=== PATIENT | female | born 1980 ===

== ENCOUNTER 2024-01-01 12:10 | Outpatient (AMB) | payer BC, SELFPAY ==
--- NOTE | 2024-01-01 12:11 | MHC.OFFWIV ---
Intake Vital Signs 01/01/24 12:14 Height 5 ft 4.5 in Weight 120 lb BMI 20.3 BP 110/76 Blood Pressure Location Lt brachial Position Sitting Pulse 78 Pulse Source Pulse Oximeter Temp 98.2 F Temp Source Oral Pulse Oximetry (%) 98 Oxygen Delivery Method Room Air Intake Visit Reasons: Abdominal pain, nausea Intake Note: pt c/o abdominal pain and nausea. Started 4 days ago with burning while urinating Patient Tobacco Use Status: Never used Tobacco Allergies No Known Allergies Allergy (Verified 01/01/24 12:18) Do you need a note to return to daycare/school/sports/work: No HPI HPI Comments History of Present Illness Details Patient is a 43-year-old female complaining of 3 days of burning with urination, increased frequency of urination, lower abdominal pain and some blood in her urine. She denies any fevers or history of kidney stones. She has not taken anything to try to make the pain go away. PFSH Social History Patient Tobacco Use Status: Never used Tobacco Review of Systems Const All systems reviewed & are unremarkable except as noted in HPI and below Physical Exam Vital Signs: Last Vital Signs Temp 98.2 F 01/01/24 12:14 Pulse 78 01/01/24 12:14 BP 110/76 01/01/24 12:14 Pulse Ox 98 01/01/24 12:14 Oxygen Delivery Method Room Air 01/01/24 12:14 BMI result Body Mass Index 20.3 Const General: cooperative, healthy appearing, comfortable, no acute distress and well developed Orientation/consciousness: patient oriented x3 Limitations: no limitations HEENT Head: Yes normal to inspection Eyes General: appearance normal, both eyes and all related structures Neck Neck: Yes normal visual inspection and Yes full ROM Resp Effort & Inspection: normal respiratory effort and able to speak in complete sentences GI Inspection: Yes normal to inspection Palpation (GI): Soft to palpation and Tenderness to palpation present (GI) suprapubicly General: Yes no CVA tenderness Back/Spine/Pelvis Back: no CVA tenderness Skin General skin exam: no rashes or lesions noted Neuro General: patient oriented x3 Extrem General: Yes normal to inspection Results AMB Urinalysis, Automated UA Leukoctes 125 Bri/uL Last Edit by WEN Cerna on 01/01/24 12:34 UA Nitrite Negative Last Edit by WEN Cerna on 01/01/24 12:34 UA Urobilinogen 0.2 mg/dL Last Edit by Michaela Cheema [facility] on 01/01/24 12:34 UA Protein 0 mg/dL Last Edit by Michaela Cheema [facility] on 01/01/24 12:34 UA pH 6.5 Last Edit by Michaela Cheema [facility] on 01/01/24 12:34 UA Blood 200 Jules/uL Last Edit by Michaela Cheema [facility] on 01/01/24 12:34 UA Specific [place] 1.015 Last Edit by Michaela Cheema [facility] on 01/01/24 12:34 UA Ketone Negative Last Edit by Michaela Cheema [facility] on 01/01/24 12:34 UA Bilirubin 0 mg/dL Last Edit by Michaela Cheema [facility] on 01/01/24 12:34 UA Glucose 0 mg/dL Last Edit by Michaela Cheema [facility] on 01/01/24 12:34 Results Reviewed Results Reviewed: UA positive infection and blood Assessment & Plan Assessment & Plan (1) Urinary tract infection: Code(s): N39.0 - Urinary tract infection, site not specified Plan: Urinalysis showed positive leukocyte esterase, and positive blood. Did educate patient the blood could be from kidney stones but most likely from the infection. If her pain continues after starting antibiotics for 2-3 days or she develops fevers, she should follow up with the emergency department or her primary care doctor. Plan See above Orders: Orders AMB Urinalysis Automated Today Z13.9 - Encounter for screening, unspecified Medications: New nitrofurantoin monohyd/m-cryst 100 mg (Macrobid) must administer with a meal/food 100 mg PO Q12H 5 days 10 caps 0RF Coding Level of Care Code New Pt Level 3 (93427) Diagnoses Urinary tract infection N39.0
[2024-01-01 12:14] VITALS: BP 110/76; PULSE 78; TEMP 36.8; O2SAT 98; BMI 20.3
== END 2024-01-01 12:41 | disposition home or self-care (01) ==
PROVIDERS: Visit Provider Physician Assistant
DX: Z13.9 Encounter for screening, unspecified (principal); N39.0 Urinary tract infection, site not specified
CPT/HCPCS: 81003; 99203